=== PATIENT | female | born 1965 | race African-American/Black ===

== ENCOUNTER 2018-02-22 18:38 | Emergency (ER) | payer OTHER ==
[2018-02-22] MEDS ORDERED: FENTANYL CITRATE INJ/PF 100 MCG/2 ML AMPUL IM ONE (19:24)
--- NOTE | 2018-02-22 19:25 | ER Document Report ---
ED Medical Screen (RME) - General Chief Complaint: Flank Pain Stated Complaint: FLANK PAIN Time Seen by Provider: 02/22/18 19:15 Notes: RAPID MEDICAL EVALUATION DISCLOSURE I have seen this patient as part of a Rapid Medical Evaluation and, if applicable, placed any initially appropriate orders. The patient will be seen and fully evaluated, including a full history and physical exam, by a provider ( in Main ED or Fast Track) when a room becomes available. 53-year-old female here with complaints of right sided abdominal pain that has migrated and is now in the right lower back. Pain is not worse with movement urinating defecating or anything in particular. It is not improved with anything in particular. She has tried taking [id number] pain medication without much relief. She has not had any nausea vomiting diarrhea dysuria hematuria frequency hesitancy. She went to an urgent care facility and they tested her urine and told her to come here for evaluation because they saw some blood in the urine. EXAM No abdominal TTP No CVA TTP No musculoskeletal back TTP TRAVEL OUTSIDE OF THE [place] IN LAST 30 DAYS: No - Related Data Allergies/Adverse Reactions: codeine Allergy (Verified 02/22/18 18:42) Past Medical History - Social History Chew tobacco use (# tins/day): No Frequency of alcohol use: None Drug Abuse: None - Past Medical History Cardiac Medical History: Reports: Hx Hypertension Renal/ Medical History: Denies: Hx Peritoneal Dialysis Past Surgical History: Reports: Hx Abdominal Surgery - obstructed, Hx Section - x 2, Hx Hysterectomy Physical Exam - Vital signs Vitals: Temp Pulse Resp BP Pulse Ox 98.9 F 80 18 188/89 H 97 02/22/18 19:02/22/18 19:02/22/18 19:02/22/18 19:02/22/18 19:09 Course - Vital Signs Vital signs: Temp Pulse Resp BP Pulse Ox 98.9 F 80 18 188/89 H 97 02/22/18 19:02/22/18 19:02/22/18 19:09 02/22/18 19:09 02/22/18 19:09
--- NOTE | 2018-02-22 20:05 | RADIOLOGY REPORT (SQ) ---
EXAM DESCRIPTION: CT LTD RENAL STONE PROTOCOL ON COMPLETED DATE/TIME: 02/22/2018 7:43 pm REASON FOR STUDY: R flank pain; eval stone pyelonephritis COMPARISON: None. TECHNIQUE: CT scan of the abdomen and pelvis performed without intravenous or oral contrast. Images reviewed with lung, soft tissue, and bone windows. Reconstructed coronal and sagittal MPR images revi ewed. All images stored on PACS. All CT scanners at this facility use dose modulation, iterative reconstruction, and/or weight based d osing when appropriate to reduce radiation dose to as low as reasonably achievable (ALARA). [facility]: Dose Right [facility]: CareDose [facility]: Dose Right [facility]: Teradose 4D [facility]: Smart Technologies RADIATION DOSE: CT Rad equipment meets quality standard of care and radiation dose reduction techniq ues were employed. CTDIvol: 12.0 mGy. DLP: 615 mGy-cm.mGy. LIMITATIONS: None. FINDINGS: LOWER CHEST: No significant findings. No nodules or infiltrates. NON-CONTRASTED LIVER, SPLEEN, ADRENALS: Evaluation limited by lack of IV contrast. No identified sign ificant masses. PANCREAS: No masses. No peripancreatic inflammatory changes. GALLBLADDER: No identified stones by CT criteria. No inflammatory changes to suggest cholecystitis. RIGHT KIDNEY AND URETER: No suspicious masses. Assessment limited by lack of IV contrast. 7.5 mm ca lcified stone in the proximal right ureter with moderate hydronephrosis. Multiple additional 2 to 3 mm stones are present in the lower pole. LEFT KIDNEY AND URETER: No suspicious masses. Assessment limited by lack of IV contrast. Tiny paren chymal calcifications. No hydronephrosis or hydroureter. AORTA AND RETROPERITONEUM: No aneurysm. No retroperitoneal masses or adenopathy. BOWEL AND PERITONEAL CAVITY: No obvious masses or inflammatory changes. No free fluid. APPENDIX: Surgically absent. PELVIS, BLADDER, AND ABDOMINAL WALL:No abnormal masses. No free fluid. Bladder normal. BONES: No acute findings. OTHER: No other significant finding. IMPRESSION: 7.5 mm calcified stone in the proximal right ureter with moderate hydronephrosis. COMMENT: Quality ID # [id number]: Final reports with documentation of one or more dose reduction techniques (e.g., Automated exposure control, adjustment of the mA and/or kV according to patient size, use of iterative reconstruction technique) TECHNICAL DOCUMENTATION: JOB ID: [id number] [place]-72 2010 [employer]- All Rights Reserved Reading location - IP/workstation name: [email or web address]
[2018-02-22 20:17] LABS: ABSOLUTE EOSINOPHILS # (AUTO) 0.1 10^3/uL (0.0-0.6); ABSOLUTE LYMPHOCYTES (AUTO) 2.4 10^3/uL (0.5-4.7); ABSOLUTE MONOCYTES (AUTO) 1.1 10^3/uL (0.1-1.4); ABSOLUTE NEUT (AUTO) 9.1 10^3/uL (1.7-8.2); BASOPHILS % (AUTO) 0.3 % (0-2); EOSINOPHILS % (AUTO) 0.8 % (0-6); HEMOGLOBIN 12.6 g/dL (12.0-15.5); LYMPHOCYTES % (AUTO) 18.9 % (13-45); MEAN CORPUSCULAR HEMOGLOBIN 28.9 pg (27.0-33.4); MEAN CORPUSCULAR HGB CONC 33.2 g/dL (32.0-36.0); MEAN CORPUSCULAR VOLUME 87 fl (80-97); MONOCYTES % (AUTO) 8.8 % (3-13); PLATELET COUNT 226 10^3/uL (150-450); RED BLOOD COUNT 4.38 10^6/uL (3.72-5.28); SEGMENTED NEUTROPHILS % (AUTO) 71.2 % (42-78); TOTAL CELLS COUNTED % (AUTO) 100 %; WHITE BLOOD COUNT 12.7 10^3/uL (4.0-10.5)
[2018-02-22 20:26] LABS: AMORPHOUS SEDIMENT,URINE TRACE /HPF; APPEARANCE,URINE SLIGHTLY-CLOUDY; BILIRUBIN,URINE NEGATIVE (NEGATIVE); COLOR,URINE YELLOW; GLUCOSE, URINE NEGATIVE (NEGATIVE); KETONES,URINE NEGATIVE (NEGATIVE); LEUKOCYTE ESTERASE,URINE LARGE (NEGATIVE); NITRITE,URINE POSITIVE (NEGATIVE); PROTEIN,URINE NEGATIVE (NEGATIVE); UROBILINOGEN,URINE NEGATIVE mg/dL (<2.0)
[2018-02-22 20:37] LABS: ALANINE AMINOTRANSFERASE 28 U/L (9-52); ALBUMIN 4.4 g/dL (3.5-5.0); ALKALINE PHOSPHATASE 64 U/L (38-126); ANION GAP 12 (5-19); ASPARTATE AMINO TRANSFERASE 22 U/L (14-36); BILIRUBIN,DIRECT 0.4 mg/dL (0.0-0.4); BILIRUBIN,TOTAL 0.5 mg/dL (0.2-1.3); BLOOD UREA NITROGEN 12 mg/dL (7-20); CALCIUM 9.5 mg/dL (8.4-10.2); CARBON DIOXIDE 31 mmol/L (22-30); CHLORIDE 97 mmol/L (98-107); GLUCOSE 176 mg/dL (75-110); LIPASE 117.4 U/L (23-300); POTASSIUM 3.5 mmol/L (3.6-5.0); SODIUM 139.8 mmol/L (137-145); TOTAL PROTEIN 7.8 g/dL (6.3-8.2)
[2018-02-22] MEDS ORDERED: CEPHALEXIN 500 MG CAPSULE PO ONE (22:41)
--- NOTE | 2018-02-23 00:10 | ER Document Report ---
ED General - General Chief Complaint: Flank Pain Stated Complaint: FLANK PAIN Time Seen by Provider: 02/22/18 19:15 Notes: Patient is a 53-year-old female who presents with 24 hours of right flank pain. She describes this as a constant, stabbing, moderate to severe pain. States that the pain started abruptly and has been ongoing since that time. Nothing improves or worsens the pain. She denies any history of similar symptoms in the past. She has not seen her general doctor regarding today's concerns. He denies any fever or constitutional symptoms. No history of abdominal surgeries. She has associated dysuria but no hematuria. TRAVEL OUTSIDE OF THE [place] IN LAST 30 DAYS: No - Related Data Allergies/Adverse Reactions: codeine Allergy (Verified 02/22/18 18:42) Past Medical History - General Information source: Patient - Social History Smoking Status: Never Smoker Chew tobacco use (# tins/day): No Frequency of alcohol use: None Drug Abuse: None Family History: Reviewed & Not Pertinent Patient has suicidal ideation: No Patient has homicidal ideation: No - Past Medical History Cardiac Medical History: Reports: Hx Hypertension Renal/ Medical History: Denies: Hx Peritoneal Dialysis Past Surgical History: Reports: Hx Abdominal Surgery - obstructed, Hx Section - x 2, Hx Hysterectomy Review of Systems - Review of Systems Notes: Constitutional: Negative for fever. HENT: Negative for sore throat. Eyes: Negative for visual changes. Cardiovascular: Negative for chest pain. Respiratory: Negative for shortness of breath. Gastrointestinal: Positive for right flank pain and nausea Genitourinary: Positive for dysuria. Musculoskeletal: Negative for back pain. Skin: Negative for rash. Neurological: Negative for headaches, weakness or numbness. 10 point ROS negative except as marked above and in HPI. Physical Exam - Vital signs Vitals: Temp Pulse Resp BP Pulse Ox 98.9 F 80 18 188/89 H 97 02/22/18 19:09 02/22/18 19:02/22/18 19:02/22/18 19:02/22/18 19:09 Interpretation: Hypertensive Notes: PHYSICAL EXAMINATION: GENERAL: Well-appearing, well-nourished and in no acute distress. HEAD: Atraumatic, normocephalic. EYES: Pupils equal round and reactive to light, extraocular movements intact, sclera anicteric, conjunctiva are normal. ENT: nares patent, oropharynx clear without exudates. Moist mucous membranes. NECK: Normal range of motion, supple without lymphadenopathy LUNGS: Breath sounds clear to auscultation bilaterally and equal. No wheezes rales or rhonchi. HEART: Regular rate and rhythm without murmurs ABDOMEN: Soft, mild right flank tenderness otherwise no localized areas of tenderness, normoactive bowel sounds. No guarding, no rebound. No masses appreciated. EXTREMITIES: Normal range of motion, no pitting or edema. No cyanosis. NEUROLOGICAL: No focal neurological deficits. Moves all extremities spontaneously and on command. PSYCH: Normal mood, normal affect. SKIN: Warm, Dry, normal turgor, no rashes or lesions noted. Course - Re-evaluation Re-evalutation: 02/23/18 00:06 Patient presents with 2 days of right-sided flank pain found to have a 7 mm stone on the left side with an associated finding of a possible urinary tract infection on her urinalysis. The patient is otherwise extremely well in appearance, vitals within normal limits with the exception of hypertension which the patient has at baseline. She has no tachycardia, no fever, no hypotension, no significant leukocytosis or bandemia. A urine culture has been obtained the patient has been started on cephalexin. I have emphasized with the patient the critical importance of following up with urology within the next 24 hours and provided her with multiple contacts for urology follow-up. The patient has verbalized an understanding for the urgent need for urological evaluation given the concern for possible infected stone. We have also reviewed at length that if she develops a fever, has worsening pain, persistent vomiting, or any other concerning symptoms she is to return immediately to the emergency room for further evaluation. At this time will discharge with return precautions and follow-up recommendations. Verbal discharge instructions given a the bedside and opportunity for questions given. Medication warnings reviewed. Patient is in agreement with this plan and has verbalized understanding of return precautions and the need for primary care follow-up in the next 24-72 hours. - Vital Signs Vital signs: Temp Pulse Resp BP Pulse Ox 98.9 F 70 17 168/91 H 99 02/22/18 19:09 02/23/18 00:31 02/23/18 00:31 02/23/18 00:31 02/23/18 00:31 - Laboratory Result Diagrams: 02/22/18 19:45 02/22/18 19:45 Laboratory results interpreted by me: 02/22/18 02/22/18 02/22/18 19:45 19:45 19:45 WBC 12.7 H RDW 15.0 H Absolute Neutrophils 9.1 H Potassium 3.5 L Chloride 97 L Carbon Dioxide 31 H Glucose 176 H Urine Blood MODERATE H Urine Nitrite POSITIVE H Ur Leukocyte Esterase LARGE H - Diagnostic Test Radiology reviewed: Reports reviewed Discharge - Discharge Clinical Impression: Right kidney stone, Essential hypertension Urinary tract infection Qualifiers: Urinary tract infection type: site unspecified Hematuria presence: without hematuria Qualified Code(s): N39.0 - Urinary tract infection, site not specified Condition: Stable Disposition: HOME, SELF-CARE Additional Instructions: You urgently need to follow-up with urology regarding today's visit as you have a kidney stone but also a kidney infection. You need to ideally see them tomorrow. There are 2 listed urology groups in the paperwork. Please return to the emergency department sooner if you develop fever >100.4, persistent vomiting, worsening pain or any other symptoms that are concerning to you. You should take ibuprofen 600 mg every 6 hours and use the oral morphine as prescribed only for pain not controlled by ibuprofen. Take antibiotics as directed. You are also been sent home with a medication called Flomax to help pass the stone. You've been given Zofran to assist with nausea. [facility] [address] [id number] Prescriptions: Morphine Sulfate [Morphine Ir 15 mg Tablet] 15 mg PO Q6HP PRN #12 tablet PRN Reason: Cephalexin Monohydrate [Keflex 500 mg Capsule] 500 mg PO Q6H 7 Days capsule Tamsulosin HCl [Flomax 0.4 mg Cap.sr] 0.4 mg PO DAILY #7 cap.sr.24h Referrals: IVETTE HENDRICKSON II, MD [OREN APARICIO] - Follow up tomorrow
[2018-02-23] MEDS ORDERED: TAMSULOSIN HCL 0.4 MG CAP.SR.24H PO ONE (00:11)
[2018-02-23] MEDS ORDERED: KETOROLAC TROMETHAMINE INJ/PF 30 MG/1 ML SDV IV ONE (00:11)
[2018-02-23] MEDS ORDERED: HYDROCODONE/ACETAMINOPHEN 5-325 MG (6 TAB/ER DISP) PO PRN (00:11)
[2018-02-23] MEDS ORDERED: ONDANSETRON ODT 4 MG TAB (6 TAB/ER DISP) PO PRN (00:11)
[2018-02-23] MEDS ORDERED: KETOROLAC TROMETHAMINE 60 MG/2 ML SDV IM ONE (00:20)
[2018-02-23 00:32] VITALS: BP 168/91
== END 2018-02-23 00:45 | disposition home or self-care (01) ==
LOC: ER 18:38
DX: N20.0 Calculus of kidney (principal); N39.0 Urinary tract infection, site not specified; I10 Essential (primary) hypertension; R10.9 Unspecified abdominal pain; R30.0 Dysuria; R11.0 Nausea; R10.819 Abdominal tenderness, unspecified site
CPT/HCPCS: 99284; 96372; 36415; 87086; 83690; 85025; 87088; 80053; 81001; 87186; 76380; J1885; J3010